=== PATIENT | male | born 1980 | race Caucasian/White ===

== ENCOUNTER → 2018-01-31 | Emergency (ER) | payer OTHER ==
[~2018-01-31] VITALS: Ht 170.2 cm; Wt 113.4 kg
[~2018-01-31] MED LIST: CELEBREX100 MG PO; HYDROCHLOROTH12.5 MG PO; LYRICA50 MG PO; METFORMIN HCL500 MG; NORVASC10 MG PO; SKELAXIN800 MG PO; VITAMIN D1000 UNIT PO; ZANTAC150 M3; ZESTRIL5 MG
== END | disposition home or self-care (01) ==
LOC: ER 09:20
DX: R10.11 Right upper quadrant pain (principal)

== ENCOUNTER 2023-06-16 10:06 | Outpatient (CLI) | payer OTHER | END 2023-06-16 10:14 | disposition home or self-care (01) | LOC: RAD 10:06 | PROVIDERS: ATTEND Internal Medicine | DX: M54.6 Pain in thoracic spine (principal); M62.830 Muscle spasm of back ==

== ENCOUNTER 2023-07-14 15:48 | Outpatient (CLI) | payer OTHER | END 2023-07-14 15:58 | disposition home or self-care (01) | LOC: RAD 15:48 | PROVIDERS: ATTEND Internal Medicine | DX: M25.562 Pain in left knee (principal); M25.572 Pain in left ankle and joints of left foot ==